=== PATIENT | female | born 1980 | race Caucasian/White ===

== ENCOUNTER → 2020-11-27 | Outpatient (CLI) | payer OTHER ==
[2017-08-29 11:04] VITALS: BP 108/65
[~2020-11-27] MED LIST: ACET325T9 PO; ACET500T68 PO; BUPR150T8 PO; BUPR300T92 PO; CYCL10TA2 PO; ESOM20CA PO; FERR325T14 PO; GABA300C18 PO; IBUP-1060 PO; IBUP200T44 PO; POLY119P4 PO; [UNRECOGNIZED DRUG - OTHER]
--- NOTE | 2020-11-27 15:47 | PDOC1 ---
INITIAL PAIN CONSULT DATE OF SERVICE: DOS: DATE: 11/27/20 TIME: 15:40 CHIEF COMPLAINT: Chief Complaint: Low back and left lower extremity pain HISTORY OF PRESENT ILLNESS: 40-year-old female presents with pain low back left lower extremity radicular fashion status post lumbar discectomy on a semiemergent basis 2017. Patient reports that the pain was better for about 6 months after the surgery but over the last 3 years the pain is been returning and most specifically about 1 year ago after childbirth had significant pain in the low back and left lower extremity once again posterior gluteus posterior thigh posterior calf intermittent intensity but all across the low back at all times patient reports that is worse with walking standing changing positions has difficulty getting up out of bed has to rollover before sitting up wakes her from sleep least 2-3 times a night patient reports it currently does not affect her bowel bladder control but does affect her ability to walk as she is unable to run or do any aggressive exercise because of the pain. Patient has had physical therapy in the past and still doing some stretching and strength exercises daily but without significant reduction in pain. Patient has been trying [id number] analgesic such as Motrin and Tylenol Motrin does help Tylenol does not. Patient did have MRI scan lumbar spine dated August 15, 2020 showing L5-S1 to space narrowing degenerative endplate changes with posterior disc osteophyte complex in the left paracentral location without significant foraminal stenosis po stoperative changes and posterior disc osteophyte complex. Patient rates her disability rating 0-10 10 being the worst is a 9 with family home responsibilities and recreation and occupational activities to with social activity self-care life support activities 5 with sexual behavior. PAST MEDICAL HISTORY: PMH: Arthritis, gastroesophageal reflux, depression, previous pregnancies PREVIOUS SURGERIES: Past Surgical Hx: L5-S1 discectomy 2018 CURRENT MEDICATIONS: Current Meds: Active Scripts Medications Dose Route/Sig Max Daily Dose Days Date Category Acetaminophen 500 Mg Tablet 2,000 Mg PO DAILY 11/27/20 Reported Motrin Ib (Ibuprofen) 200 Mg Tablet 800 Mg PO Q6H PRN 11/27/20 Reported [sunflower leichthin] 2 Tab BID 11/27/20 Reported Nexium Capsule (Esomeprazole Magnesium) 20 Mg Capsule.dr 15 Mg PO BID 11/27/20 Reported Bupropion Xl (Bupropion Hcl) 300 Mg Tab.er.24h 300 Mg PO BID 11/27/20 Reported ALLERGIES; Allergies: Coded Allergies: morphine (Verified Allergy, Intermediate, itching, 08/27/17) FAMILY HISTORY: Family Hx: No major medical problems or conditions that she is aware of SOCIAL HISTORY: Social Hx: 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 REVIEW OF SYSTEMS: ROS: Positive for those items mentioned in history of present illness, all systems are reviewed, otherwise negative ,and are complete full and well-documented on patient's chart. PHYSICAL EXAM: VS: Pressure is 131/88 pulse 85 respirations 16 temperature is 97.7 F height is 5 feet 7 inches weight 159 pounds PE: PHYSICAL EXAMINATION: GENERAL: The patient is awake, alert, oriented, appropriate, very pleasant demeanor, patient accompanied by her . HEENT: Shows normocephalic, atraumatic. Extraocular movements are intact and symmetrical. Oral cavity: Mucous membranes moist and pink. Dentition is intact. NECK: Shows anterior throat supple without palpable lymphadenopathy noted. Swallow reflex symmetrical. CHEST: Shows normal on inspection. Breath sounds are clear bilaterally, no rales rhonchi wheezes auscultated. HEART: Shows S1, S2 clear. No murmurs auscultated. ABDOMEN: Soft, nontender, nondistended, obese. No palpable organomegaly is noted. No rebound or guarding demonstrated. BACK: Shows spine grossly in the midline. Normal-appearing cervical lordotic curvature. There is slightly increased thoracic kyphosis, some minor flattening of the lumbar lordotic curvature, with well-healed midline surgical scar. Lumbar paraspinous muscles show symmetrical on inspection, on palpation shows some moderate tenderness diffusely throughout the upper, middle and lower distribution of the paraspinous muscles bilaterally and also into the lower thoracic paraspinous musculature, firm and tender, but without specific trigger points, without radiation of pain. The patient has good rotational motion of the lumbar spine, both laterally as well as extension and flexion without significant difficulty. No tenderness over the spinous processes, sacrum or sacroiliac regions. EXTREMITIES: Lower extremities show deep tendon reflexes 2+ in the patellar and tendo calcaneus tendons. Motor exam is 5 on a scale of 5 with right dorsiflexion, extension, quadriceps and hamstring flexion and 4/5 on the left. Peripheral pulses are 1+ posterior tibial. No peripheral edema is noted bilaterally. Lower extremities are warm and dry to touch, equal in color and appearance. The patient is able to stand, stand on her toes that significant difficulty or loss of balance walks with a slight favoring gait favoring the left lower extremity but without any assistive device such as canes or walkers to ambulate. SKIN: Shows warm and dry, good turgor. No edema. No sores, rashes or bruising throughout. IMPRESSION: Impression: 40-year-old female with approximate 3-year history pain low back left lower extremity better initially after surgery 2018 now returning in a radicular fashion and L5-S1 dermatomal distribution on the left. MRI scan lumbar spine as noted History of arthritis History of depression Plan: Options were discussed with the patient including conservative medical management physical therapies and interventional techniques. Patient would like to pursue interventional techniques. We discussed a lumbar epidural steroid injection using descriptions as well as anatomical models to describe the procedure. Patient will wait for preauthorization with her insurance provider once this is obtained we will have her return for a translaminar approach L5-S1 lumbar epidural steroid injection at that time. In the meantime patient will continue with stretching strength exercise we also discussed potential pool therapy and she will look into this at her local fitness facility. TONY LEON MD Nov 27, 2020 15:47
== END | disposition home or self-care (01) ==
LOC: PNCL 14:21
PROVIDERS: ATTEND Anesthesiology
DX: M54.5 Low back pain (principal); M79.605 Pain in left leg; M19.90 Unspecified osteoarthritis, unspecified site; K21.9 Gastro-esophageal reflux disease without esophagitis; F41.9 Anxiety disorder, unspecified; F32.9 Major depressive disorder, single episode, unspecified; Z79.899 Other long term (current) drug therapy; Z98.890 Other specified postprocedural states; Z88.6 Allergy status to analgesic agent
CPT/HCPCS: G0463

== ENCOUNTER → 2020-12-13 | Outpatient (CLI) | payer OTHER ==
[2017-08-29 11:04] VITALS: BP 108/65
[~2020-12-13] MED LIST changes: +IOHEXOL 180 MG/ML 10 ML VIAL. ONE; +methylPREDNISolone ACETATE 40 MG/ML VIAL. ONE; +methylPREDNISolone ACETATE 80 MG/ML VIAL. ONE
--- NOTE | 2020-12-13 15:45 | PDOC ---
Progress Note - Pain Clinic Date of Service: DOS: DATE: 12/13/20 TIME: 15:43 Diagnosis: Dx: Lumbar radiculopathy with lumbar degenerative disc disease and lumbar postlaminectomy syndrome History or Present Illness: HPI: 40-year-old female returns for follow-up status post initial evaluation preauthorization with her insurance provider for lumbar epidural steroid injection. Patient reports still significant pain in the low back and the left lower extremity as was previously in the posterior gluteus posterior thigh posterior calf patient reports is an 8 on scale 10 is worse over the past week 7 on average 5 its least is a 7 today patient reports no new motor or sensory deficits no new bowel or bladder incontinence describes pain is radiating constant low back and leg with walking aching and sharp in the back shooting in the lower extremity better with sitting or laying down but has been waking him sleep fairly frequently over the past week or so. Patient reports no other complaints. Physical Exam: VS: Blood pressure is 114/70 pulse 88 respirations 16 weight is 98.2 F, weight is 1 5 6 pounds PE: PHYSICAL EXAMINATION: GENERAL: The patient is awake, alert, oriented, appropriate, very pleasant demeanor HEENT: Shows normocephalic, atraumatic. Extraocular movements are intact and symmetrical. NECK: Shows anterior throat supple without palpable lymphadenopathy noted. Swallow reflex symmetrical. CHEST: Shows normal on inspection. Breath sounds are clear bilaterally. HEART: Shows S1, S2 clear. No murmurs auscultated. ABDOMEN: Soft, nontender, nondistended. No palpable organomegaly is noted. No rebound or guarding demonstrated. BACK: Shows spine grossly in the midline. Normal-appearing cervical lordotic curvature. There is slightly increased thoracic kyphosis, some minor flattening of the lumbar lordotic curvature. Lumbar paraspinous muscles show symmetrical on inspection, on palpation shows some moderate tenderness diffusely throughout the upper, middle and lower distribution of the paraspinous muscles, without specific trigger points, without radiation of pain. The patient has good rotational motion of the lumbar spine, both laterally as well as extension and flexion without significant difficulty. No tenderness over the spinous processes, sacrum or sacroiliac regions. EXTREMITIES: Lower extremities show deep tendon reflexes 2+ in the patellar and tendo calcaneus tendons. Motor exam is 5 on a scale of 5 with right dorsiflexion, extension, quadriceps and hamstring flexion and 4/5 on the left. Peripheral pulses are 1+ posterior tibial. No peripheral edema is noted bilaterally. Lower extremities are warm and dry to touch, equal in color and appearance. SKIN: Shows warm and dry, good turgor. No edema. No sores, rashes or bruising throughout. Procedure: Procedure: Options were discussed with the patient. Patient chart was reviewed as part medication regimen updated current review of systems updated today as well. We will proceed with a lumbar epidural steroid injection today with fluoroscopic guidance. Risks were discussed including but not limited to: Bleeding, infection, possibility of epidural hematoma and subsequent neurological compromise, dural puncture, headaches, spinal cord and/or nerve damage, side effects of steroid medication, and poor results regarding pain control. Patient understands and wished to proceed. Patient will return to the clinic in approximately 2 weeks for follow-up, was counseled as return appointment acti vity level and side effects to be aware of. Medication Injected: Med Injected: Procedure is lumbar epidural steroid injection under local anesthetic using sterile prep and drape at the L5-S1 level using C-arm fluoroscopic guidance in both AP and lateral views medications injected is 120 mg Depo-Medrol + 10 mL preservative-free normal saline and 2 mL contrast- condition at discharge is stable patient tolerated procedure well had no complications. Condition at Discharge: Condition at Discharge: Condition at discharge stable, patient alert the procedure well and had no c omplications. TONY LEON MD Dec 13, 2020 15:45
--- NOTE | 2020-12-13 15:46 | PDOC4 ---
PROCEDURE Procedure Patient was consented for lumbar epidural steroid injection. Risks were dis cussed including but not limited to: Bleeding, infection, possibility of epidural hematoma and subsequent neurological compromise, dural puncture, headaches, spinal cord and/or nerve damage, side effects of steroid medication, and poor results regarding pain control. Patient understands and wished to proceed. Procedure is lumbar epidural steroid injection under local anesthetic using sterile prep and drape at the L5-S1 level using C-arm fluoroscopic guidance in both AP and lateral views medications injected is 120 mg Depo-Medrol + 10 mL preservative-free normal saline and 2 mL contrast- condition at discharge is stable patient tolerated procedure well had no complications. TONY LEON MD Dec 13, 2020 15:46
== END | disposition home or self-care (01) ==
LOC: PNCL 14:19
PROVIDERS: ATTEND Anesthesiology
DX: M51.16 Intervertebral disc disorders with radiculopathy, lumbar region (principal); M96.1 Postlaminectomy syndrome, not elsewhere classified; F41.9 Anxiety disorder, unspecified; F32.9 Major depressive disorder, single episode, unspecified; Z79.899 Other long term (current) drug therapy; Z88.6 Allergy status to analgesic agent
CPT/HCPCS: 62323; J1030; J1040; Q9965

== ENCOUNTER → 2021-01-25 | Outpatient (CLI) | payer OTHER ==
[2017-08-29 11:04] VITALS: BP 108/65
--- NOTE | 2021-01-25 14:59 | PDOC4 ---
PROCEDURE Procedure Patient was consented for lumbar epidural steroid injection. Risks were dis cussed including but not limited to: Bleeding, infection, possibility of epidural hematoma and subsequent neurological compromise, dural puncture, headaches, spinal cord and/or nerve damage, side effects of steroid medication, and poor results regarding pain control. Patient understands and wished to proceed. Procedure is lumbar epidural steroid injection under local anesthetic using sterile prep and drape at the L5-S1 level using C-arm fluoroscopic guidance in both AP and lateral views medications injected is 120 mg Depo-Medrol +10mL preservative-free normal saline and 2 mL contrast- condition at discharge is stable patient tolerated procedure well had no complications. TONY LEON MD Jan 25, 2021 14:59
--- NOTE | 2021-01-25 14:59 | PDOC ---
Progress Note - Pain Clinic Date of Service: DOS: DATE: 01/25/21 TIME: 14:56 Diagnosis: Dx: Lumbar radiculopathy with lumbar degenerative disease and lumbar postlaminectomy syndrome History or Present Illness: HPI: 40-year-old female returns follow-up status post lumbar epidural steroid injection times one-point first 2020. Patient reports doing very well with about 50 to 75% improvement initially now the pain is about 50% overall improved in the low back left lower extremity patient reports is returning now becoming more noticeable in the low back and left leg patient reports is an 8 on scale 10 is worse over the past week 7 on average 3 its least is a 5 today patient scribes radiating constant low back with activity standing walking changing positions better with sitting or laying down generally does not awaken her from sleep at night most nights patient report is aching dull tight in the back and shooting and radiating sometimes stabbing in the leg as well patient reports no new motor or sensory deficits no new bowel or bladder incontinence or other complaints. Physical Exam: VS: Blood pressure is 135/78 pulse 101 respiration 16 temperature 98.1 F height 65.5 inches weight is 157 pounds PE: PHYSICAL EXAMINATION: GENERAL: The patient is awake, alert, oriented, appropriate, very pleasant demeanor HEENT: Shows normocephalic, atraumatic. Extraocular movements are intact and symmetrical. Oral cavity: Mucous membranes moist and pink. Dentition is intact. NECK: Shows anterior throat supple without palpable lymphadenopathy noted. Swallow reflex symmetrical. CHEST: Shows normal on inspection. Breath sounds are clear bilaterally. HEART: Shows S1, S2 clear. No murmurs auscultated. ABDOMEN: Soft, nontender, nondistended. No palpable organomegaly is noted. BACK: Shows spine grossly in the midline. Normal-appearing cervical lordotic curvature. There is slightly increased thoracic kyphosis, some minor flattening of the lumbar lordotic curvature. Lumbar paraspinous muscles show symmetrical on inspection, on palpation shows some moderate tenderness diffusely throughout the upper, middle and lower distribution of the paraspinous muscles without specific trigger points, without radiation of pain. The patient has good rotational motion of the lumbar spine, both laterally as well as extension and flexion without significant difficulty. EXTREMITIES: Lower extremities show deep tendon reflexes 2+ in the patellar and tendo calcaneus tendons. Motor exam is 5 on a scale of 5 with right dorsiflexion, extension, quadriceps and hamstring flexion and 4/5 on the left. Peripheral pulses are 1+ posterior tibial. No peripheral edema is noted bilaterally. Lower extremities are warm and dry to touch, equal in color and appearance. SKIN: Shows warm and dry, good turgor. No edema. No sores, rashes or bruising throughout. Procedure: Procedure: Options were discussed with the patient. Patient chart was reviewed as her current medication regimen updated current review of systems updated today as well. We will proceed with a second in the series lumbar epidural steroid injection today with fluoroscopic guidance. Risks were discussed including but not limited to: Bleeding, infection, possibility of epidural hematoma and subsequent neurological compromise, dural puncture, headaches, spinal cord and/or nerve damage, side effects of steroid medication, and poor results regarding pain control. Patient understands and wished to proceed. Patient return to the clinic in approximate 2 weeks for follow-up, was counseled as return appointment activity level and side effects to be aware of. Medication Injected: Med Injected: Procedure is lumbar epidural steroid injection under local anesthetic using sterile prep and drape at the L5-S1 level using C-arm fluoroscopic guidance in both AP and lateral views medications injected is 120 mg Depo-Medrol +10mL preservative-free normal saline and 2 mL contrast- condition at discharge is stable patient tolerated procedure well had no complications. Condition at Discharge: Condition at Discharge: Condition at discharge is stable, patient tolerated the procedure well and had no complications. TONY LEON MD Jan 25, 2021 14:59
== END ==
LOC: PNCL 14:07
PROVIDERS: ATTEND Anesthesiology
DX: M51.17 Intervertebral disc disorders with radiculopathy, lumbosacral region (principal); M96.1 Postlaminectomy syndrome, not elsewhere classified
CPT/HCPCS: 62323; J1030; J1040; Q9965

== ENCOUNTER → 2021-04-12 | Outpatient (CLI) | payer OTHER ==
[2017-08-29 11:04] VITALS: BP 108/65
[~2021-04-12] MED LIST changes: -IOHEXOL 180 MG/ML 10 ML VIAL. ONE; -methylPREDNISolone ACETATE 40 MG/ML VIAL. ONE; -methylPREDNISolone ACETATE 80 MG/ML VIAL. ONE
--- NOTE | 2021-04-12 15:32 | PDOC ---
Progress Note - Pain Clinic Date of Service: DOS: DATE: 04/12/21 TIME: 15:28 Diagnosis: Dx: Lumbar radiculopathy with lumbar degenerative disease and lumbar postlaminectomy syndrome History or Present Illness: HPI: 40-year-old female returns for follow-up status post lumbar epidural steroid injection x2. Patient reports doing much better with 75% improvement and is recently joined a fitness facility and is doing much better with some stretching strength exercises and consistent workout techniques and activity patient repor ts her pain is a seven on scale 10 is worse over the past week six on average to its least is a four today patient reports is aching and dull in the back radiating constant at times but doing much better she is increase activity greater distance walking exercising doing household activities travel with greater ease and comfort sleeping better at night patient reports he does not aw aken her from sleep since her last injection patient reports no bowel or bladder incontinence or motor deficits. Physical Exam: VS: Blood pressure is 120/59 pulse 85 respirations 18 temperature is 98.1 F weight is 159 pounds PE: PHYSICAL EXAMINATION: GENERAL: The patient is awake, alert, oriented, appropriate, very pleasant in demeanor. HEENT: Shows normocephalic, atraumatic. Extraocular movements are intact and symmetrical. Oral cavity: Mucous membranes moist and pink. Dentition is intact. NECK: Shows anterior throat supple without palpable lymphadenopathy noted. Swallow reflex symmetrical. CHEST: Shows normal on inspection. Breath sounds are clear bilaterally, no rales rhonchi wheezes auscultated. HEART: Shows S1, S2 clear. No murmurs auscultated. ABDOMEN: Soft, nontender, nondistended. No palpable organomegaly is noted. BACK: Shows spine grossly in the midline. Normal-appearing cervical lordotic curvature. There is slightly increased thoracic kyphosis, some minor flattening of the lumbar lordotic curvature. Lumbar paraspinous muscles show symmetrical on inspection, on palpation shows some moderate tenderness diffusely throughout the upper, middle and lower distribution of the paraspinous muscles, but without specific trigger points, without radiation of pain. The patient has good rotational motion of the lumbar spine, both laterally as well as extension and flexion without significant difficulty. EXTREMITIES: Lower extremities show deep tendon reflexes 2+ in the patellar and tendo calcaneus tendons. Motor exam is five on a scale of 5 with right dorsiflexion, extension, quadriceps and hamstring flexion and four/5 on the left. Peripheral pulses are 1+ posterior tibial. No peripheral edema is noted bilaterally. Lower extremities are warm and dry to touch, equal in color and appearance. SKIN: Shows warm and dry, good turgor. No edema. No sores, rashes or bruising throughout. Procedure: Procedure: Options discussed with the patient. Patient chart reviews her current medication regimen updated current review of systems updated today as well. We will hold further injections at this time as patient doing quite a bit better. Encourage patient to continue with stretching strength exercises as well as exercise routine as currently. Patient was encouraged to increase activity slowly and gradually as tolerated. Patient will return to clinic at this time on an as- needed basis. Medication Injected: Med Injected: None Condition at Discharge: Condition at Discharge: Condition at discharge is stable. TONY LEON MD Apr 12, 2021 15:32
== END ==
LOC: PNCL 13:32
PROVIDERS: ATTEND Anesthesiology
DX: M51.16 Intervertebral disc disorders with radiculopathy, lumbar region (principal); M96.1 Postlaminectomy syndrome, not elsewhere classified
CPT/HCPCS: 99212; G0463